=== PATIENT | male | born 1975 | race Caucasian/White ===

== ENCOUNTER 2019-12-22 18:25 | Emergency (ER) | payer OTHER ==
[~2019-12-22] VITALS: Ht 170.2 cm; Wt 90.9 kg
[2019-12-22] MEDS ORDERED: IBUPROFEN 800 MG TABLET PO ONE (19:15)
[2019-12-22] MEDS ORDERED: LIDOCAINE 1% 10 ML VIAL INJ ONE (19:15)
[2019-12-22] MEDS ORDERED: POVIDONE-IODINE 10% 15 ML SOLUTION UD TP ONE (19:15)
[2019-12-22] MEDS ORDERED: PERTUSS(ACELL),DIPH,TET VAC/PF 0.5 ML VIAL IM ONE (19:15)
[2019-12-22 19:22] VITALS: BP 154/89
== END 2019-12-22 19:46 | disposition home or self-care (01) ==
LOC: EMS 18:25
DX: S81.012A Laceration without foreign body, left knee, initial encounter (principal); W22.8XXA Striking against or struck by other objects, initial encounter; Y93.89 Activity, other specified; Y92.89 Other specified places as the place of occurrence of the external cause; Y99.8 Other external cause status
CPT/HCPCS: 12002; 90471; 90715; 99283; J3490